=== PATIENT | female | born 1935 | race Caucasian/White ===

== ENCOUNTER 2018-07-01 13:59 | Emergency (ER) | payer MEDICARE, OTHER ==
[~2018-07-01] VITALS: Ht 160 cm; Wt 78.5 kg
[~2018-07-01 13:59] MED LIST: ACET325 PO; ALBU3IS INH; ALBU90OI61; ALBUIS INH; ALLO100; ALLO100 PO; AZEL137S NS; Acetaminophen-1 EAC1 PO; Allopurinol100 MG PO; BISA10S; Benadryl 50 mg50 MG PO; CHOL10002 PO; CINA30 PO; COLESTIPOL HCL; DIPH50; DOCU100; Dulcolax5 MG PO; ERGO400 PO; FEXPSEER PO; FOSRENOL1000 MG PO; Flonase 0.05% N16 GM; Full Spectrum0.8 MG; GLIP10 PO; GLIP2.5ER PO; GLIP5 PO; HYDR1TAB94 PO; Heparin 5,5000 U/0.5 IJ; Humalog100 UNIT/1; INS70/30PN SC; INSUASPI; INSULANPEN SC; LAVAP17G PO; LISI5 PO; METO25 PO; METO25ER; METO50ER PO; MIDO5 PO; MONT10T PO; MUPI1NAS; Midodrine HCl10 MG PO; Miralax17 GM PO; NEBI5 PO; NEPHROCAP PO; NORTHERA100 MG PO; Nephro-Vite RX1 EA PO; Neurontin 300300 MG PO; Novolin R100 UNIT/M; OXYACE5T PO; OXYC10ER PO; OXYGEN; PANT40 PO; PREG50 PO; PROM25; PROM25 PO; PSYL5.85P PO; Pantoprazole So40 MG PO; RANI150 PO; Renvela800 MG PO; SEVEC800; SITA100T2 PO; Senna8.6 MG; Sensipar60 MG PO; Sucralfate1 GM PO; Toprol Xl25 MG; Tylenol325 MG; VELPHORO500 MG PO; Vitamin C100 M1 PO; WARF5 PO; WARF7.5 PO
== END 2018-07-01 14:48 | disposition home or self-care (01) ==
LOC: ER 13:59
DX: R55 Syncope and collapse (principal); I12.9 Hypertensive chronic kidney disease with stage 1 through stage 4 chronic kidney disease, or unspecified chronic kidney disease; N18.9 Chronic kidney disease, unspecified; E11.22 Type 2 diabetes mellitus with diabetic chronic kidney disease
CPT/HCPCS: 93005; 93010; 99284-25

== ENCOUNTER → 2018-11-18 | Outpatient (CLI) | payer MEDICARE, OTHER ==
[2018-11-18 08:29] LABS: Hematocrit 34.8 % (33.0-51.0); Hemoglobin 10.5 g/dL (11.5-16.0)
== END | disposition home or self-care (01) ==
LOC: LAB DAV 08:25
PROVIDERS: Internal Medicine Nephrology
DX: D64.9 Anemia, unspecified (principal)
CPT/HCPCS: 85014; 85018

== ENCOUNTER 2019-03-08 05:29 | Observation (INO) | payer MEDICARE, OTHER ==
[~2019-03-08] VITALS: Ht 160 cm; Wt 76.2 kg
[~2019-03-08 05:29] MED LIST changes: -Humalog100 UNIT/1; +Humalog100 UNIT/1 SC
[2019-03-08] MEDS ORDERED: GABA300 PO (05:42)
[2019-03-08] MEDS ORDERED: LINZESS72 MCG (05:42)
[2019-03-08] MEDS ORDERED: TRAZ100 PO (05:43)
[2019-03-08 06:10] LABS: Calcium, Ionized (POC) 0.95 mmol/L (1.10-1.46); Chloride (POC) 94 mmol/L (98-108); Creatinine (POC) 7.2 mg/dL (0.6-1.0); Glucose (ISTAT POC) 184 mg/dL (70-99); Hemoglobin (POC) 13.3 g/dL (12.0-16.0); Potassium (POC) 4.4 mmol/L (3.5-5.5); Sodium (POC) 133 mmol/L (135-148); Total CO2 (POC) 28 mmol/L (21-32)
[2019-03-08 06:25] LABS: BASOPHILS ABSOLUTE AUTO 0.03 K/mm3 (0.00-0.23); BASOPHILS PERCENT AUTO 0 % (0-2); EOSINOPHILS ABSOLUTE AUTO 0.47 K/mm3 (0.00-0.68); EOSINOPHILS PERCENT AUTO 6 % (0-6); Hematocrit 39.2 % (33.0-51.0); IMMATURE GRAN ABSOLUTE AUTO 0.27 K/mm3 (0.00-0.10); IMMATURE GRAN PERCENT AUTO 4 % (0-1); LYMPHOCYTES ABSOLUTE AUTO 2.04 K/mm3 (0.84-5.20); LYMPHOCYTES PERCENT AUTO 27 % (21-46); MONOCYTES ABSOLUTE AUTO 0.63 K/mm3 (0.16-1.47); MONOCYTES PERCENT AUTO 8 % (4-13); Mean Corpuscular HGB 29.6 pg (26.0-34.0); Mean Corpuscular HGB Conc 30.6 g/dL (31.5-36.5); Mean Corpuscular Volume 97 fL (80-100); Mean Platelet Volume 11.7 fL (9.1-12.4); NEUTROPHILS ABSOLUTE AUTO 4.02 K/mm3 (1.96-9.15); NEUTROPHILS PERCENT AUTO 54 % (41-73); Platelet Count 264 K/mm3 (150-400); RDW Coefficient Variation 13.9 % (11.7-14.2); RDW Standard Deviation 49.2 fL (35.1-46.3); Red Blood Cell Count 4.05 M/mm3 (3.80-5.20); White Blood Cell Count 7.46 K/mm3 (4.00-11.30)
[2019-03-08 06:35] LABS: Albumin, Blood 2.9 g/dL (3.4-5.0); Albumin/Globulin Ratio 0.8 (0.8-1.8); Bilirubin, Total 0.3 mg/dL (0.1-1.0); Bun/Creatinine Ratio 12.9 (12.0-20.0); Calcium, Blood 8.1 mg/dL (8.5-10.1); Creatinine, Blood 6.84 mg/dL (0.40-1.00); Globulin, Blood 3.7 g/dL (2.2-4.0); Potassium, Blood 4.6 mmol/L (3.5-5.5); Total Protein, Blood 6.6 g/dL (6.4-8.2); Troponin I 0.02 ng/mL (0.000-0.040)
[2019-03-08 08:09] LABS: International Normalized Ratio 2.48; Prothrombin Time Results 24.2 Sec (9.7-11.5)
--- NOTE | 2019-03-08 08:40 | NUR ---
dialysis ordered by dr boyle this AM in dialysis treatment room as soon as patient admitted to floor
[2019-03-08 09:39] LABS: CPK Creatine Kinase 139 U/L (26-193); Creatine Kinase MB <1.0 ng/mL (0.0-3.6); Creatine Kinase MB Index Unable to Calculate (0.0-4.0)
--- NOTE | 2019-03-08 12:02 | NUR ---
new er admit. pt state increased weakness today, unable to ambulate, state she fell trying to stand today. she is a/o x4, pleasant, state no discomfort @ this time. she was scheduled for outpt dialysis this am, dr boyle consulted while in ER, she was taken out to dialysis room shortly after arriving to rm [id number].
[2019-03-08] MEDS ORDERED: Calcium Acetat667 MG PO (13:08)
[2019-03-08] MEDS ORDERED: VITAMIN D31000 UNI1 PO (13:17)
--- NOTE | 2019-03-08 15:35 | NUR ---
SUMMARY PT IS A/O X4, PLEASANT/COOPERATIVE AFFECT. SHE STATE INCREASED WEAKNESS & FALL @ HOME REASON FOR HOSP. PHYTHER IN TO SEE HER THIS AFTERNOON, PT WAS ABLE TO STAND & BR WT W ASSIST HOWEVER UNABLE TO AMBULATE @ THIS TIME, THERAPY STATE 2 ASSIST. HX HEMODIALYSIS, GFR 6, DR NEFF MANAGING, ORDER DIALYSIS TODAY. HX DM, BLOOD SUGAR PRIOR TO LUNCH 154, HAS NOT ORDERED INSULIN YET. VSS, HR 50-60'S.
--- NOTE | 2019-03-09 04:40 | NUR ---
SHIFT SUMMARY ADMITTED FOR BILATERAL LEG WEAKNESS. DNR CODE. PT AMBULATES W/FWW @ [facility]. HERE SHE CANNOT AMBULATE. MULTIPLE FALLS AT HOME. BRUISING BLE. ESRD - AISHWARYA IS FOLLOWING. DIALYSIS YESTERDAY, RT CHEST PERMACATH. ADA/HIGH PROTEIN DIET. RA. HX:DM2. ACHS CHEMSTICKS, GLIPIZIDE SCHEDULED IN EMAR. GFR 6, ANURIC. STAGE 2 PRESSURE ULCER, MEPILEX ON BUTTOCK. RUNS BRADYCARDIC 50-60'S BPM. WARFARIN IN EMAR. MONITOR INR LABS. BNP LAB WAS 396.
[2019-03-09 04:46] LABS: BASOPHILS ABSOLUTE AUTO 0.02 K/mm3 (0.00-0.23); BASOPHILS PERCENT AUTO 0 % (0-2); EOSINOPHILS ABSOLUTE AUTO 0.27 K/mm3 (0.00-0.68); EOSINOPHILS PERCENT AUTO 5 % (0-6); Hematocrit 35.6 % (33.0-51.0); Hemoglobin 10.6 g/dL (11.5-16.0); IMMATURE GRAN ABSOLUTE AUTO 0.19 K/mm3 (0.00-0.10); IMMATURE GRAN PERCENT AUTO 4 % (0-1); LYMPHOCYTES ABSOLUTE AUTO 1.39 K/mm3 (0.84-5.20); LYMPHOCYTES PERCENT AUTO 26 % (21-46); MONOCYTES ABSOLUTE AUTO 0.57 K/mm3 (0.16-1.47); MONOCYTES PERCENT AUTO 11 % (4-13); Mean Corpuscular HGB 29.4 pg (26.0-34.0); Mean Corpuscular HGB Conc 29.8 g/dL (31.5-36.5); Mean Corpuscular Volume 99 fL (80-100); Mean Platelet Volume 11.5 fL (9.1-12.4); NEUTROPHILS ABSOLUTE AUTO 2.97 K/mm3 (1.96-9.15); NEUTROPHILS PERCENT AUTO 55 % (41-73); Platelet Count 246 K/mm3 (150-400); RDW Coefficient Variation 14.1 % (11.7-14.2); RDW Standard Deviation 51.6 fL (35.1-46.3); White Blood Cell Count 5.41 K/mm3 (4.00-11.30)
[2019-03-09 05:00] LABS: International Normalized Ratio 2.52; Prothrombin Time Results 24.6 Sec (9.7-11.5)
[2019-03-09 05:06] LABS: Alanine Aminotransfer (ALT/SGP 11 U/L (12-78); Albumin, Blood 2.5 g/dL (3.4-5.0); Albumin/Globulin Ratio 0.8 (0.8-1.8); Alk Phos 51 U/L (50-136); Anion Gap 9 mmol/L (6-16); Aspartate Aminotrans (AST/SGOT 4 U/L (12-37); Bilirubin, Total 0.4 mg/dL (0.1-1.0); Blood Urea Nitrogen 57 mg/dL (8-24); Bun/Creatinine Ratio 10.4 (12.0-20.0); CO2, Blood 30 mmol/L (21-32); Calcium, Blood 7.8 mg/dL (8.5-10.1); Chloride, Blood 100 mmol/L (98-108); Creatinine, Blood 5.48 mg/dL (0.40-1.00); Globulin, Blood 3.2 g/dL (2.2-4.0); Glomerular Filtration Rate 8 (60-); Glucose, Blood 170 mg/dL (70-99); Magnesium, Blood 1.9 mg/dL (1.6-2.4); Phosphorus, Blood 4.8 mg/dL (2.5-4.9); Potassium, Blood 4.1 mmol/L (3.5-5.5); Sodium, Blood 139 mmol/L (136-145); Total Protein, Blood 5.7 g/dL (6.4-8.2)
--- NOTE | 2019-03-09 16:49 | NUR ---
DR MARTINS IN THIS AFTERNOON TO SEE PT, STATE OK FOR D/C HOME W HOME HEALTH. PT MIKE MILLER NOTIFIED STATE CONCERNS THAT PT IS STILL UNABLE TO AMBULATE. DR MARTINS EXPLAIN THAT ANIBAL MARTINEZ RECOMMENDS HOME HEALTH. RN D/C CAFETERIA CLERK, PT ADVOCATE INVOLVED. DAUGHTER REQUEST ANIBAL RE-JUAN TO DETERMINE IF D/C APPROPRIATE. D/C ON HOLD @ THIS TIME
--- NOTE | 2019-03-09 17:57 | NUR ---
PATIENT IS NOT BEING DISCHARGED TONIGHT. CARE MANAGEMENT AND PATIENT ADVOCATES ARE INVOLVED.
--- NOTE | 2019-03-10 03:01 | NUR ---
Has been resting quietly with few interruptions since HS. No complaints voiced. Call light in reach.
[2019-03-10 05:27] LABS: International Normalized Ratio 2.14; Prothrombin Time Results 21.2 Sec (9.7-11.5)
[2019-03-10 07:18] LABS: Albumin, Blood 2.9 g/dL (3.4-5.0); Anion Gap 9 mmol/L (6-16); Blood Urea Nitrogen 48 mg/dL (8-24); CO2, Blood 27 mmol/L (21-32); Calcium, Blood 8.2 mg/dL (8.5-10.1); Chloride, Blood 104 mmol/L (98-108); Creatinine, Blood 4.78 mg/dL (0.40-1.00); Glomerular Filtration Rate 9 (60-); Glucose, Blood 177 mg/dL (70-99); Phosphorus, Blood 4.2 mg/dL (2.5-4.9); Potassium, Blood 4.2 mmol/L (3.5-5.5); Sodium, Blood 140 mmol/L (136-145)
--- NOTE | 2019-03-10 15:40 | NUR ---
CALLED DR MARTINS- PT C/O VAGINAL DISCHARGE THIS MORNING DURING ASSESSMENT. JOSE CARE PERFORMED AND PT WAS NOTED TO HAVE A MILKY WHITE DISCHARGE THAT HAD AN OBVIOUS ODOR. SPOKE TO AND RECIEVED A OT ORDER FOR DIFLUCAN.
--- NOTE | 2019-03-10 16:48 | NUR ---
CALLED DR MARTINS- PT BG [id number] PT HAS NO COVERAGE CURRENTLY ON ADA DIET WITH AC/HS BG. NEW ORDER RECIEVED FOR LOW SS HUMALOG.
--- NOTE | 2019-03-10 18:44 | NUR ---
SHIFT SUMMARY- PT ALERT AND ORIENTED. SCD'S IN PLACE. PT HAD DIALYSIS TODAY, NEW ORDER FOR SQ INSULIN STARTED TODAY SEE PREVIOUS NOTES FOR DETAILS. PT HAS A SMALL PRESSURE SORE ON HER BOTTOM, MEPILEX C/D/I HOWEVER WAS REMOVED AND CHANGED. PT STATED IT FEELS MUCH BETTER AFTER THE CHANGE. PT RECIEVED A OT DOSE OF FLUDRICONOZOLE FOR POSSIBLE YEAST INFECTION CAUSEING A MILKY VAGINAL DISHARGE THAT HAS OBVIOUS ODOR. WILL PASS ON IN REPORT AND CTM TOMORROW.
[2019-03-11 05:04] LABS: Hematocrit 35.9 % (33.0-51.0); Hemoglobin 10.8 g/dL (11.5-16.0)
[2019-03-11 05:18] LABS: International Normalized Ratio 1.87; Prothrombin Time Results 18.7 Sec (9.7-11.5)
[2019-03-11 05:25] LABS: Albumin, Blood 2.9 g/dL (3.4-5.0); Anion Gap 10 mmol/L (6-16); Blood Urea Nitrogen 44 mg/dL (8-24); Bun/Creatinine Ratio 10.4 (12.0-20.0); CO2, Blood 26 mmol/L (21-32); Calcium, Blood 8.7 mg/dL (8.5-10.1); Chloride, Blood 104 mmol/L (98-108); Creatinine, Blood 4.24 mg/dL (0.40-1.00); Glomerular Filtration Rate 11 (60-); Glucose, Blood 146 mg/dL (70-99); Magnesium, Blood 1.9 mg/dL (1.6-2.4); Phosphorus, Blood 4.5 mg/dL (2.5-4.9); Sodium, Blood 140 mmol/L (136-145)
--- NOTE | 2019-03-11 05:33 | NUR ---
SHIFT SUMMARY PATIENT ALERT AND ORIENTED ALL NIGHT. SHE HAD NO COMPLAINTS OF PAIN AND WAS ABLE TO SLEEP WITHOUT INTERRUPTION. IV PATENT AND FLUSHED. BED IN LOWEST POSITION WITH WHEELS LOCKED. CALL LIGHT AND BELONGINGS WITHIN REACH. REPORT GIVEN TO ONCOMING RN.
--- NOTE | 2019-03-11 14:00 | NUR ---
PALLIATIVE CARE INITIAL VISIT: REFERRAL RECEIVED FROM PT AND FOR ADVANCED CARE PLANNING. PT HAS BEEN IN HOSPITAL FOR OBSERVATION DUE TO INCREASED WEAKNESS AND REPORTED FALLS AT HOME. PT REEVALUATED TODAY DUE TO DAUGHTER'S REPORTED CONCERNS FOR SAFETY AT HOME AND REQUEST THAT PT GO TO SNF. PT DID NOT QUALIFY FOR ACUTE CARE STAY AND PT IS NOT RECOMMENDING SNF DUE TO PT'S POOR REHAB POTENTIAL AND FEELING THAT SHE IS CURRENTLY NEAR HER BASELINE FOR ADLS AND MOBILITY PER HIS NOTE TODAY. DISCUSSED PLAN OF CARE AND CONCERNS WITH PT, AND OG BEFORE MY VISIT. FOUND PT SITTING UP IN BED IN HER ROOM. NO VISITORS OR FAMILY PRESENT. HANNAH IS PLEASANT AND RECEPTIVE TO DISCUSSING HER NEEDS AND CONCERNS. SHE WOULD LIKE [facility] TO SPEAK DIRECTLY WITH HER AND NOT HER SCOT RE: PLANNING. SHE STATES, "ONCE SHE GETS SOMETHING IN HER HEAD, PAUL STAYS STUCK ON IT". HANNAH STATES THAT SHE ADOPTED PAUL A FOSTER CHILD IN HER HOME. SHE HAD THREE CHILDREN IN ADDITION TO PAUL. TWO HAVE OF CANCER AND A THIRD, SON-RADHA, LIVES IN HER HOME AND HAS CANCER. SHE STATES PAUL DOES HELP RADHA SOME BUT SPENDS 90% OF THE TIME IN HER BEDROOM SLEEPING OR PLAYING COMPUTER GAMES. PT REPORTS SHE IS RELUCTANT TO SAY TOO MUCH BECAUSE SHE RELIES ON PAUL FOR TRANSPORTATION TO DIALYSIS AND MEDICAL LAUREN AND ASSISTANCE WITH OTHER ADLS. SHE STATES PAUL WOULD LIKE IT IF SHE COULD GO TO A FACILITY SO THAT SHE COULD REMAIN IN THE HOME WITHOUT HER BEING THERE SO SHE WOULD NOT HAVE TO HELP HER AT ALL. HANNAH STATES HER DAUGHTER HAS SOME MENTAL HEALTH ISSUES AND LIKES A LOT OF ATTENTION. HANNAH FEELS THAT SHE COULD IMPROVE AND CONTINUE IN HER HOME WITH REGULAR PHYSICAL THERAPY IN THE HOME. SHE FEELS LIKE SHE HAD A GREAT PT SESSION JUST A LITTLE BIT AGO. WE DISCUSSED THE ANTICIPATION THAT SHE WOULD NEED MORE CARE IN THE FUTURE, THE IMPORTANCE OF HAVING AN ADVOCATE & SURROGATE DECISION MAKER SHE TRUSTS AND THE POSSIBILITY OF GETTING ASSISTANCE WITH TRANSPORTATION AND CAREGIVING IN THE HOME THRU AN APD SCREENING. PT IS VERY RECEPTIVE TO INITIATING AN APD SCREENING FOR SERVICES AND TALKING TO THE CM/DC PLANNERS ABOUT WHAT WE CAN DO TO HELP HER IN BOTH HER SHORT TERM AND LONGER TERM NEEDS FOR ADVANCED CARE PLANS. I CONTACTED RAND FOLEY, TO REQUEST ASSIST [facility] PLANNING AND ASSESSMENT FOR NEEDS. SHE AND OG HARDY JOINED US IN THE ROOM AND WE REVIEWED ALL THAT PT HAD STATED AND IDENTIFIED NEEDS/CONCERNS. RAND TO HELP PT START SCREENING PROCESS TODAY AND TRY TO ARRANGE TRANSPORTATION FOR PT TO DIALYSIS SO SHE DID NOT HAVE TO RELY ON HER DAUGHTER FOR THAT. PT COULD NOT REMEMBER WHICH HH AGENCY SHE HAD AND DID NOT HAVE A PREFERENCE. I WOULD RECOMMEND PT/OT, CHIEF CREDIT OFFICER AND BOTTOM STAINER, RN FOR ASSESSMENT AND S/S MANAGEMENT. PT STATES SHE IS STILL EXPERIENCEING INTERMITTENT N/V AND THIS IS LONG STANDING WITH RENAL FAILURE. PT WILL SPEAK WITH DIALYSIS UNIT TO REQUEST AN APPOINTMENT TIME LATER THAN HER CURRENT 5 AM START TIME TO HELP WITH GETTING ALTERNATE TRANSPORTATION. I ENCOURAGED PT TO TALK WITH THE DIALYSIS BOTTOM STAINER REGULARLY TO EXPRESS CONCERNS AND GROWING NEEDS FOR CARE WE GO FORWARD TO PREVENT A CRISIS IN THE HOME OR LACK OF CARE IN THE HOME. PT IS AWARE THAT AT SOME POINT HER CARE NEEDS MAY NOT BE ABLE TO BE MET IN HER OWN HOME. SHE IS PROVIDING ROOM AND BOARD TO BOTH HER DAUGHTER AND HER SON WHO IS ILL. PT VERY APPRECIATIVE OF THE INFO AND HELP.
--- NOTE | 2019-03-11 15:46 | NUR ---
PT AO AND COOPERATIVE OF CARE. PT HAD ONE EPISODE OF NAUSEA POST PHYSICAL THERAPY SESSION. PT ALSO HAD PALLIATIVE CARE COME FOR A CONSULT WITH HER. PT ABLE TO WALK WITH GAITBELT TO WHEELCHAIR WITH AID ASSISTING. DAUGHTER OF PT NOT HAPPY WITH PT DISCHARGING AND STATED IF HER MOTHER FELL AT HOME SHE WOULD BE SUING THE HOSPITAL. DAUGHTER STATES HER MOTHER IS TO WEAK IN HER LEGS TO BE SAFE AT HOME. PT HAPPY TO BE LEAVING. ALL BELONGINGS ARE WITH PT AND PT ESCORTED VIA WHEELCHAIR TO N ENTRANCE BY AID.
== END 2019-03-11 16:45 | disposition home health service (06) ==
LOC: ER 05:29 → MEDS 05:30 → ENPENDDIS 03-09 15:24 → MEDS 03-11 16:45
PROVIDERS: Emergency Medicine; Internal Medicine Nephrology; Pharmacist; ADMIT Internal Medicine
DX: R53.1 Weakness (principal); I12.0 Hypertensive chronic kidney disease with stage 5 chronic kidney disease or end stage renal disease; E11.22 Type 2 diabetes mellitus with diabetic chronic kidney disease; N18.6 End stage renal disease; D63.1 Anemia in chronic kidney disease; N25.81 Secondary hyperparathyroidism of renal origin; E11.40 Type 2 diabetes mellitus with diabetic neuropathy, unspecified; E88.09 Other disorders of plasma-protein metabolism, not elsewhere classified; E87.1 Hypo-osmolality and hyponatremia; E83.51 Hypocalcemia; Z91.81 History of falling; Z79.84 Long term (current) use of oral hypoglycemic drugs; Z79.899 Other long term (current) drug therapy; Z79.01 Long term (current) use of anticoagulants; Z99.2 Dependence on renal dialysis; Z88.5 Allergy status to narcotic agent; Z88.8 Allergy status to other drugs, medicaments and biological substances; Z88.2 Allergy status to sulfonamides
CPT/HCPCS: 36415; 71046; 80047; 80053; 80069; 82550; 82553; 82947; 83690; 83735; 83880; 84100; 84443; 84484; 85014; 85018; 85025; 85610; 85651; 93005; 93010; 97110; 97162; 97164; 97530; 99285-25; G0257; G0378; J2405; P9046

== ENCOUNTER → 2019-04-06 | Outpatient (CLI) | payer MEDICARE, OTHER ==
[~2019-04-06] MED LIST changes: +Calcium Acetat667 MG PO; +GABA300 PO; +LINZESS72 MCG; +TRAZ100 PO; +VITAMIN D31000 UNI1 PO
[2019-04-06 14:20] LABS: Influenza A Negative (NEGATIVE); Influenza B Negative (NEGATIVE)
== END ==
LOC: LAB 11:24 → LAB SHORT 11:24
PROVIDERS: Internal Medicine Nephrology
DX: R50.9 Fever, unspecified (principal)
CPT/HCPCS: 87804

== ENCOUNTER 2019-10-18 18:40 | Inpatient (IN) | payer MEDICARE, OTHER ==
[~2019-10-18] VITALS: Ht 162.6 cm; Wt 69.4 kg
[~2019-10-18 18:40] MED LIST changes: +AUGMENTIN 500-1 EACH; +FLUC150A PO; +HUMALOG100 UNIT/1 SC; -Humalog100 UNIT/1 SC; -TRAZ100 PO; +TRAZ50 PO
[2019-10-18 19:06] LABS: BASOPHILS ABSOLUTE AUTO 0.04 K/mm3 (0.00-0.23); BASOPHILS PERCENT AUTO 0 % (0-2); EOSINOPHILS ABSOLUTE AUTO 0.29 K/mm3 (0.00-0.68); EOSINOPHILS PERCENT AUTO 3 % (0-6); Hematocrit 38.7 % (33.0-51.0); Hemoglobin 11.6 g/dL (11.5-16.0); IMMATURE GRAN ABSOLUTE AUTO 0.19 K/mm3 (0.00-0.10); IMMATURE GRAN PERCENT AUTO 2 % (0-1); LYMPHOCYTES ABSOLUTE AUTO 2.17 K/mm3 (0.84-5.20); LYMPHOCYTES PERCENT AUTO 21 % (21-46); MONOCYTES ABSOLUTE AUTO 0.62 K/mm3 (0.16-1.47); MONOCYTES PERCENT AUTO 6 % (4-13); Mean Corpuscular HGB 31.2 pg (26.0-34.0); Mean Corpuscular Volume 104 fL (80-100); NEUTROPHILS ABSOLUTE AUTO 7.02 K/mm3 (1.96-9.15); NEUTROPHILS PERCENT AUTO 68 % (41-73); Platelet Count 290 K/mm3 (150-400); RDW Coefficient Variation 14.1 % (11.7-14.2); RDW Standard Deviation 54.4 fL (35.1-46.3); Red Blood Cell Count 3.72 M/mm3 (3.80-5.20); White Blood Cell Count 10.33 K/mm3 (4.00-11.30)
[2019-10-18 19:27] LABS: Troponin I <0.015 ng/mL (0.000-0.040)
[2019-10-18 19:33] LABS: Alanine Aminotransfer (ALT/SGP 11 U/L (12-78); Albumin/Globulin Ratio 0.8 (0.8-1.8); Alk Phos 61 U/L (50-136); Anion Gap 7 mmol/L (6-16); Aspartate Aminotrans (AST/SGOT 12 U/L (12-37); Bilirubin, Total 0.5 mg/dL (0.1-1.0); Blood Urea Nitrogen 14 mg/dL (8-24); Bun/Creatinine Ratio 6.4 (12.0-20.0); CO2, Blood 32 mmol/L (21-32); Calcium, Blood 9.6 mg/dL (8.5-10.1); Chloride, Blood 95 mmol/L (98-108); Glomerular Filtration Rate 23 (60-); Glucose, Blood 139 mg/dL (70-99); Potassium, Blood 3.4 mmol/L (3.5-5.5); Sodium, Blood 134 mmol/L (136-145)
[2019-10-18] MEDS ORDERED: AMLODIPINE BES2.5 MG PO (19:48)
[2019-10-18] MEDS ORDERED: NEURONTIN300 MG PO (19:49)
[2019-10-18] MEDS ORDERED: VITAMIN B-625 MG PO (19:49)
[2019-10-18] MEDS ORDERED: WARF5 PO (19:55)
[2019-10-18 20:24] LABS: International Normalized Ratio 3.49; Prothrombin Time Results 34.8 Sec (9.7-11.5)
[2019-10-19 06:07] LABS: International Normalized Ratio 2.66
[2019-10-19 06:19] LABS: Prothrombin Time Results 26.9 Sec (9.7-11.5)
[2019-10-20 03:26] LABS: BASOPHILS ABSOLUTE AUTO 0.02 K/mm3 (0.00-0.23); BASOPHILS PERCENT AUTO 0 % (0-2); EOSINOPHILS ABSOLUTE AUTO 0.27 K/mm3 (0.00-0.68); EOSINOPHILS PERCENT AUTO 4 % (0-6); Hematocrit 29.6 % (33.0-51.0); Hemoglobin 8.7 g/dL (11.5-16.0); IMMATURE GRAN ABSOLUTE AUTO 0.07 K/mm3 (0.00-0.10); IMMATURE GRAN PERCENT AUTO 1 % (0-1); LYMPHOCYTES ABSOLUTE AUTO 1.56 K/mm3 (0.84-5.20); LYMPHOCYTES PERCENT AUTO 24 % (21-46); MONOCYTES PERCENT AUTO 9 % (4-13); Mean Corpuscular HGB 30.7 pg (26.0-34.0); Mean Corpuscular HGB Conc 29.4 g/dL (31.5-36.5); Mean Corpuscular Volume 105 fL (80-100); Mean Platelet Volume 11.3 fL (9.1-12.4); NEUTROPHILS ABSOLUTE AUTO 4.12 K/mm3 (1.96-9.15); NEUTROPHILS PERCENT AUTO 62 % (41-73); Platelet Count 262 K/mm3 (150-400); RDW Coefficient Variation 14.1 % (11.7-14.2); RDW Standard Deviation 54.3 fL (35.1-46.3); Red Blood Cell Count 2.83 M/mm3 (3.80-5.20); White Blood Cell Count 6.64 K/mm3 (4.00-11.30)
[2019-10-20 03:39] LABS: International Normalized Ratio 2.38; Prothrombin Time Results 24.2 Sec (9.7-11.5)
[2019-10-20 03:54] LABS: Albumin, Blood 2.5 g/dL (3.4-5.0); Albumin/Globulin Ratio 0.8 (0.8-1.8); Bilirubin, Total 0.4 mg/dL (0.1-1.0); Calcium, Blood 8.5 mg/dL (8.5-10.1); Creatinine, Blood 4.68 mg/dL (0.40-1.00); Globulin, Blood 3.3 g/dL (2.2-4.0); Phosphorus, Blood 2.8 mg/dL (2.5-4.9); Potassium, Blood 4.4 mmol/L (3.5-5.5); Thyroid Stimulating Hormone 2.38 uIU/mL (0.360-4.800); Total Protein, Blood 5.8 g/dL (6.4-8.2)
[2019-10-20 08:26] LABS: BASOPHILS ABSOLUTE AUTO 0.03 K/mm3 (0.00-0.23); BASOPHILS PERCENT AUTO 1 % (0-2); EOSINOPHILS ABSOLUTE AUTO 0.27 K/mm3 (0.00-0.68); EOSINOPHILS PERCENT AUTO 4 % (0-6); Hematocrit 28.9 % (33.0-51.0); Hemoglobin 8.7 g/dL (11.5-16.0); IMMATURE GRAN ABSOLUTE AUTO 0.05 K/mm3 (0.00-0.10); IMMATURE GRAN PERCENT AUTO 1 % (0-1); LYMPHOCYTES ABSOLUTE AUTO 1.46 K/mm3 (0.84-5.20); LYMPHOCYTES PERCENT AUTO 23 % (21-46); MONOCYTES ABSOLUTE AUTO 0.65 K/mm3 (0.16-1.47); MONOCYTES PERCENT AUTO 10 % (4-13); Mean Corpuscular HGB 31.5 pg (26.0-34.0); Mean Corpuscular HGB Conc 30.1 g/dL (31.5-36.5); Mean Corpuscular Volume 105 fL (80-100); Mean Platelet Volume 11.3 fL (9.1-12.4); NEUTROPHILS ABSOLUTE AUTO 4.04 K/mm3 (1.96-9.15); NEUTROPHILS PERCENT AUTO 62 % (41-73); Platelet Count 244 K/mm3 (150-400); RDW Coefficient Variation 14.5 % (11.7-14.2); RDW Standard Deviation 54.8 fL (35.1-46.3); Red Blood Cell Count 2.76 M/mm3 (3.80-5.20)
[2019-10-20 08:29] LABS: International Normalized Ratio 1.99
[2019-10-20 08:33] LABS: Prothrombin Time Results 20.5 Sec (9.7-11.5)
[2019-10-21 04:03] LABS: Hematocrit 26.8 % (33.0-51.0); Hemoglobin 8.2 g/dL (11.5-16.0)
[2019-10-21 04:19] LABS: Albumin, Blood 2.4 g/dL (3.4-5.0); Anion Gap 7 mmol/L (6-16); Blood Urea Nitrogen 51 mg/dL (8-24); Bun/Creatinine Ratio 8.5 (12.0-20.0); CO2, Blood 32 mmol/L (21-32); Calcium, Blood 8.5 mg/dL (8.5-10.1); Chloride, Blood 96 mmol/L (98-108); Creatinine, Blood 5.99 mg/dL (0.40-1.00); Glomerular Filtration Rate 7 (60-); Glucose, Blood 146 mg/dL (70-99); Magnesium, Blood 2.1 mg/dL (1.6-2.4); Phosphorus, Blood 3.1 mg/dL (2.5-4.9); Potassium, Blood 4.4 mmol/L (3.5-5.5); Sodium, Blood 135 mmol/L (136-145)
[2019-10-22 04:01] LABS: Hematocrit 28.9 % (33.0-51.0); Hemoglobin 8.6 g/dL (11.5-16.0)
[2019-10-22 04:16] LABS: Albumin, Blood 2.4 g/dL (3.4-5.0); Anion Gap 5 mmol/L (6-16); Blood Urea Nitrogen 28 mg/dL (8-24); Bun/Creatinine Ratio 7.2 (12.0-20.0); CO2, Blood 32 mmol/L (21-32); Calcium, Blood 8.4 mg/dL (8.5-10.1); Chloride, Blood 101 mmol/L (98-108); Creatinine, Blood 3.87 mg/dL (0.40-1.00); Glomerular Filtration Rate 12 (60-); Glucose, Blood 201 mg/dL (70-99); Phosphorus, Blood 1.9 mg/dL (2.5-4.9); Potassium, Blood 3.8 mmol/L (3.5-5.5); Sodium, Blood 138 mmol/L (136-145)
[2019-10-22 04:18] LABS: International Normalized Ratio 1.61; Prothrombin Time Results 16.8 Sec (9.7-11.5)
[2019-10-23 06:32] LABS: Hematocrit 25.6 % (33.0-51.0); Hemoglobin 7.7 g/dL (11.5-16.0)
[2019-10-23 06:43] LABS: International Normalized Ratio 2.57; Prothrombin Time Results 26.1 Sec (9.7-11.5)
[2019-10-23 06:47] LABS: Albumin, Blood 2.4 g/dL (3.4-5.0); Anion Gap 8 mmol/L (6-16); Blood Urea Nitrogen 46 mg/dL (8-24); Bun/Creatinine Ratio 8.9 (12.0-20.0); CO2, Blood 30 mmol/L (21-32); Calcium, Blood 8.4 mg/dL (8.5-10.1); Chloride, Blood 98 mmol/L (98-108); Creatinine, Blood 5.14 mg/dL (0.40-1.00); Glomerular Filtration Rate 8 (60-); Glucose, Blood 148 mg/dL (70-99); Phosphorus, Blood 3.5 mg/dL (2.5-4.9); Potassium, Blood 4.2 mmol/L (3.5-5.5); Sodium, Blood 136 mmol/L (136-145)
[2019-10-24 04:49] LABS: Hematocrit 33.9 % (33.0-51.0); Hemoglobin 10.4 g/dL (11.5-16.0)
[2019-10-24 05:04] LABS: International Normalized Ratio 2.2; Prothrombin Time Results 22.5 Sec (9.7-11.5)
[2019-10-24 05:06] LABS: Albumin, Blood 2.5 g/dL (3.4-5.0); Anion Gap 3 mmol/L (6-16); Blood Urea Nitrogen 30 mg/dL (8-24); Bun/Creatinine Ratio 8.1 (12.0-20.0); CO2, Blood 35 mmol/L (21-32); Calcium, Blood 8.9 mg/dL (8.5-10.1); Chloride, Blood 101 mmol/L (98-108); Creatinine, Blood 3.69 mg/dL (0.40-1.00); Glomerular Filtration Rate 12 (60-); Glucose, Blood 100 mg/dL (70-99); Phosphorus, Blood 2.2 mg/dL (2.5-4.9); Potassium, Blood 3.5 mmol/L (3.5-5.5); Sodium, Blood 139 mmol/L (136-145)
[2019-10-25 05:48] LABS: Hematocrit 30.3 % (33.0-51.0); Hemoglobin 9.3 g/dL (11.5-16.0)
[2019-10-25 06:05] LABS: International Normalized Ratio 2.68; Prothrombin Time Results 27.1 Sec (9.7-11.5)
[2019-10-25 06:20] LABS: Albumin, Blood 2.3 g/dL (3.4-5.0); Anion Gap 9 mmol/L (6-16); Blood Urea Nitrogen 41 mg/dL (8-24); Bun/Creatinine Ratio 7.9 (12.0-20.0); CO2, Blood 30 mmol/L (21-32); Calcium, Blood 8.8 mg/dL (8.5-10.1); Chloride, Blood 97 mmol/L (98-108); Creatinine, Blood 5.17 mg/dL (0.40-1.00); Glomerular Filtration Rate 8 (60-); Glucose, Blood 239 mg/dL (70-99); Phosphorus, Blood 3.9 mg/dL (2.5-4.9); Potassium, Blood 3.7 mmol/L (3.5-5.5); Sodium, Blood 136 mmol/L (136-145)
[2019-10-26 04:28] LABS: Hematocrit 29.1 % (33.0-51.0)
[2019-10-26 04:43] LABS: International Normalized Ratio 3.01; Prothrombin Time Results 30.3 Sec (9.7-11.5)
[2019-10-26 04:48] LABS: Albumin, Blood 2.2 g/dL (3.4-5.0); Anion Gap 8 mmol/L (6-16); Blood Urea Nitrogen 57 mg/dL (8-24); Bun/Creatinine Ratio 9.6 (12.0-20.0); CO2, Blood 31 mmol/L (21-32); Calcium, Blood 9.2 mg/dL (8.5-10.1); Chloride, Blood 98 mmol/L (98-108); Creatinine, Blood 5.92 mg/dL (0.40-1.00); Glomerular Filtration Rate 7 (60-); Glucose, Blood 165 mg/dL (70-99); Magnesium, Blood 2.1 mg/dL (1.6-2.4); Phosphorus, Blood 4.3 mg/dL (2.5-4.9); Sodium, Blood 137 mmol/L (136-145)
[2019-10-26 09:09] LABS: HBSAG SCREEN Negative (Negative); HEP A AB, IGM Negative (Negative); HEP B CORE AB, IGM Negative (Negative); HEP C VIRUS AB <0.1 (0.0-0.9)
[2019-10-27 05:07] LABS: Hematocrit 29.3 % (33.0-51.0); Hemoglobin 9.1 g/dL (11.5-16.0)
[2019-10-27 05:21] LABS: International Normalized Ratio 2.25
[2019-10-27 05:28] LABS: Albumin, Blood 2.2 g/dL (3.4-5.0); Anion Gap 5 mmol/L (6-16); Blood Urea Nitrogen 43 mg/dL (8-24); Bun/Creatinine Ratio 10.5 (12.0-20.0); CO2, Blood 32 mmol/L (21-32); Calcium, Blood 8.7 mg/dL (8.5-10.1); Chloride, Blood 101 mmol/L (98-108); Creatinine, Blood 4.09 mg/dL (0.40-1.00); Glomerular Filtration Rate 11 (60-); Glucose, Blood 84 mg/dL (70-99); Phosphorus, Blood 2.6 mg/dL (2.5-4.9); Sodium, Blood 138 mmol/L (136-145)
[2019-10-28 04:52] LABS: Hematocrit 29.4 % (33.0-51.0); Hemoglobin 9.2 g/dL (11.5-16.0)
[2019-10-28 05:10] LABS: International Normalized Ratio 2.11; Prothrombin Time Results 21.6 Sec (9.7-11.5)
[2019-10-28 05:11] LABS: Albumin, Blood 2.3 g/dL (3.4-5.0); Anion Gap 6 mmol/L (6-16); Blood Urea Nitrogen 61 mg/dL (8-24); Bun/Creatinine Ratio 11.2 (12.0-20.0); CO2, Blood 31 mmol/L (21-32); Calcium, Blood 9.2 mg/dL (8.5-10.1); Chloride, Blood 98 mmol/L (98-108); Creatinine, Blood 5.44 mg/dL (0.40-1.00); Glomerular Filtration Rate 8 (60-); Glucose, Blood 136 mg/dL (70-99); Magnesium, Blood 2.1 mg/dL (1.6-2.4); Potassium, Blood 4.7 mmol/L (3.5-5.5); Sodium, Blood 135 mmol/L (136-145)
== END 2019-10-28 10:39 | DRG 242 ==
LOC: ER 18:40 → ICUW 18:41 → SURS 10-22 15:07
PROVIDERS: Emergency Medicine; Internal Medicine; Internal Medicine Interventional Cardiology; Internal Medicine Nephrology; Pharmacist; ADMIT Internal Medicine
PROC: 0JH606Z Insertion of Pacemaker, Dual Chamber into Chest Subcutaneous Tissue and Fascia, Open Approach (ICD-10-PCS; principal; 2019-10-20)
PROC: 02H63JZ Insertion of Pacemaker Lead into Right Atrium, Percutaneous Approach (ICD-10-PCS; 2019-10-20)
PROC: 02HK3MZ Insertion of Cardiac Lead into Right Ventricle, Percutaneous Approach (ICD-10-PCS; 2019-10-20)
PROC: 5A1D70Z Performance of Urinary Filtration, Intermittent, Less than 6 Hours Per Day (ICD-10-PCS; 2019-10-22)
PROC: 5A1D70Z Performance of Urinary Filtration, Intermittent, Less than 6 Hours Per Day (ICD-10-PCS; 2019-10-24)
DX: I44.2 Atrioventricular block, complete (principal); N18.6 End stage renal disease; I12.0 Hypertensive chronic kidney disease with stage 5 chronic kidney disease or end stage renal disease; E87.1 Hypo-osmolality and hyponatremia; N25.81 Secondary hyperparathyroidism of renal origin; L97.421 Non-pressure chronic ulcer of left heel and midfoot limited to breakdown of skin; E11.22 Type 2 diabetes mellitus with diabetic chronic kidney disease; Z99.2 Dependence on renal dialysis; D63.1 Anemia in chronic kidney disease; E11.42 Type 2 diabetes mellitus with diabetic polyneuropathy; E11.621 Type 2 diabetes mellitus with foot ulcer; E78.5 Hyperlipidemia, unspecified; E83.39 Other disorders of phosphorus metabolism; E87.6 Hypokalemia; E88.09 Other disorders of plasma-protein metabolism, not elsewhere classified; I35.0 Nonrheumatic aortic (valve) stenosis; I48.0 Paroxysmal atrial fibrillation; I95.9 Hypotension, unspecified; R54 Age-related physical debility; Z99.3 Dependence on wheelchair; E87.70 Fluid overload, unspecified
CPT/HCPCS: 33208; 36415; 36430; 71045; 71046; 73620; 76937; 80053; 80069; 80074; 82947; 83735; 83880; 84100; 84132; 84443; 84484; 85014; 85018; 85025; 85610; 85730; 86317; 86850; 86900; 86901; 86923; 92953; 93005; 93010; 93306; 96361-59; 96374-59; 96375; 96375-59; 96376-59; 97110; 97116; 97162; 97166; 97530; 97535; 99152; 99153; 99285-25; A9270; A9270-GY; C1751; C1781; C1785; C1894; C1898; G0378; J0461; J0690; J0881; J1610; J1644; J1815; J2250; J2405; J3010; J7030; J7040; J7060; P9016; U0002